=== PATIENT | female | born 1970 | race Caucasian/White ===

== ENCOUNTER → 2019-06-18 | Day surgery (SDC) | payer BC ==
[~2019-06-18] MED LIST: GLYCOPYRROLATE 1 MG/5 ML VIAL. ONE; IV RINGERS,LACTATED 1000ML 1,000 ML IV SCH; LABE100T5 PO; LIDOCAINE 2% PF 5 ML VIAL. ONE; LIDOCAINE 2% TOPICAL JELLY 5GM TUBE. TP ONE; METO-247 PO; PROPOFOL 40 ML IV ONE; SPIR50TA4 PO; ePHEDrine PF IN SALINE 50 MG/10 ML SYRINGE. IV ONE
--- NOTE | 2019-06-18 09:52 | PREOP HP ---
DATE OF SERVICE: 06/18/2019 REQUESTING PHYSICIAN: Lidia Paez MD PRIMARY CARE PHYSICIAN: Lidia Paez MD REASON FOR PROCEDURE: Colorectal cancer screening. HISTORY OF PRESENT ILLNESS: This is a 49-year-old female, who presents today for colorectal cancer screening. She also admits to diarrhea. ALLERGIES: CODEINE. PAST MEDICAL HISTORY: 1. Anemia. 2. Hemorrhoids. FAMILY MEDICAL HISTORY: Significant for breast cancer. MEDICATIONS: MAR reviewed. REVIEW OF SYSTEMS: A 13-point review of systems was done. It is positive as per HPI, otherwise negative. PHYSICAL EXAMINATION: GENERAL: This is an obese female, in no apparent distress. HEENT: Oropharynx is clear. CARDIOVASCULAR: S1, S2. LUNGS: Clear. ABDOMEN: Normoactive bowel sounds, soft, nontender, nondistended. EXTREMITIES: No edema. NEUROLOGIC: Awake, alert and oriented x 3. ASSESSMENT AND PLAN: 1. Colorectal cancer screening. 2. Diarrhea. Thank you for allowing me to participate in the care of this patient. JAKUB HESTER MD DR: CAMACHO/clara JOB#: [id number] / [id number]
[2019-06-18 09:55] VITALS: BP 109/64
--- NOTE | 2019-06-19 18:06 | PATHOLOGY ---
[facility] Accession Number: [id number] . 01 Material submitted: . PART A: ileum - TERMINAL ILEUM BIOPSY PART B: colon - RIGHT COLON BIOPSY. Modifiers: right PART C: colon - LEFT COLON BIOPSY. Modifiers: left PART D: rectum - RECTAL POLYP . 01 Clinical history: . Diarrhea/screening . 02 Diagnosis: A. Small intestine mucosa, terminal ileum biopsy: - No significant pathologic abnormalities. . B. Colonic mucosa, right colon biopsies: - No significant pathologic abnormalities. . C. Colonic mucosa, left colon biopsies: - No significant pathologic abnormalities. . D. Colorectal biopsy, rectal polyp: - Hyperplastic polyp. . (JPM:renee; 06/19/2019) S 06/19/2019 1259 Local . 02 Comment: Sections of the terminal ileum biopsy reveal segments of small intestine mucosa. There are no sprue-like changes or significant inflammatory changes. . Sections of the right colon and left colon biopsies appear similar and reveal multiple segments of colonic mucosa containing several mucosal-associated lymphoid aggregates. There is no evidence of a chronic destructive colitis, lymphocytic colitis, or collagenous colitis. . Sections of the rectal biopsy reveal a hyperplastic polyp. There are no adenomatous changes or evidence of malignancy. (JPM:renee 06/19/2019) . 02 Electronically signed: . Myke Ortega MD, Pathologist NPI- [id number] . 01 Gross description: . A. The specimen is received in formalin, labeled "Marcy Gilbert, terminal ileum BX" and consists of 2 fragments of pink-kumar tissue measuring 0.4 x 0.3 cm and 0.6 x 0.3 cm which are entirely submitted in A1. . B. The specimen is received in formalin, labeled "Marcy Gilbert, R colon BX" and consists of 4 fragments of kumar tissue measuring 1.4 x 0.5 x 0.2 cm in aggregate which are entirely submitted in B1. . C. The specimen is received in formalin, labeled "Marcy Gilbert, L colon BX" and consists of multiple fragments of kumar tissue measuring 1.5 x 0.5 x 0.2 cm in aggregate which are entirely submitted in C1. . D. The specimen is received in formalin, labeled "Marcy Gilbert, rectal polyp" and consists of a fragment of pink-kumar tissue measuring 0.3 x 0.2 cm which is entirely submitted in D1. (SDY; 06/18/2019) SYU/SYU 06/18/2019 1534 Local . 02 Pathologist provided ICD-10: K62.1, R19.7, Z12.11 . 02 CPT . 167407, 891983, [id number], [id number] Specimen Comment: A courtesy copy of this report has been sent to [phone], [phone] Specimen Comment: [id number] Specimen Comment: Report sent to / DR PHELAN Performed at: 01 [facility] [address], [place] [id number] MD Jose Rashid MD Phone: [phone] Performed at: 02 [facility] [address] [place], [place] [id number] MD Myke Ortega MD Phone: [phone]
== END | disposition home or self-care (01) ==
LOC: ENDOS 08:37
PROVIDERS: ATTEND Internal Medicine Gastroenterology
DX: K52.9 Noninfective gastroenteritis and colitis, unspecified (principal); K64.0 First degree hemorrhoids; K63.89 Other specified diseases of intestine; K62.1 Rectal polyp; K63.5 Polyp of colon; G47.33 Obstructive sleep apnea (adult) (pediatric); E66.9 Obesity, unspecified; I10 Essential (primary) hypertension; Z79.899 Other long term (current) drug therapy; Z80.3 Family history of malignant neoplasm of breast; Z88.6 Allergy status to analgesic agent; Z68.44 Body mass index [BMI] 60.0-69.9, adult
CPT/HCPCS: 45380; 88305; J0171; J2001; J2704; J3490